=== PATIENT | female | born 1990 | race Hispanic/Latino ===

== ENCOUNTER 2020-05-10 10:54 | Emergency (ER) | payer MEDICAID, OTHER, SELFPAY ==
[2020-05-10 11:45] LABS: BASOPHILS % (AUTO) 0.2 % (0.0-5.0); EOSINOPHILS % (AUTO) 0.2 % (0.0-8.0); HEMATOCRIT 38.1 % (36-48); LYMPHOCYTES % (AUTO) 8.6 % (21.0-51.0); MEAN CORPUSCULAR HEMOGLOBIN 26.9 pg (27.0-33.0); MEAN CORPUSCULAR HGB CONC 33.6 g/dL (32.0-36.0); NEUTROPHILS % (AUTO) 85.7 % (40.0-77.0); PLATELET COUNT (AUTO) 234 K/uL (130-400); RED BLOOD CELL COUNT(AUTO) 4.76 MIL/uL (4.00-5.50); RED CELL DISTRIBUTION WIDTH 13.6 % (11.0-15.5); WHITE BLOOD COUNT (AUTO) 13.3 K/uL (4.8-10.8)
[2020-05-10 11:47] LABS: CREATININE 0.6 mg/dL (0.5-1.5); POTASSIUM 3.6 mmol/L (3.5-5.1)
[2020-05-10 11:52] LABS: ALBUMIN 3.8 g/dL (3.5-5.0); BILIRUBIN,TOTAL 0.5 mg/dL (0.2-1.0); TOTAL PROTEIN, SERUM 7.3 g/dL (6.0-8.3)
[2020-05-10 12:01] LABS: APPEARANCE,URINE TURBID (CLEAR); BILIRUBIN,URINE SMALL (NEGATIVE); COLOR,URINE YELLOW (YELLOW); GLUCOSE, URINE (UA) NEGATIVE (NEGATIVE); KETONES,URINE 40 mg/dL (NEGATIVE); LEUKOCYTE ESTERASE ,URINE SMALL (NEGATIVE); NITRATE,URINE NEGATIVE (NEGATIVE); OCCULT BLOOD,URINE MODERATE (NEGATIVE); PROTEIN,URINE TRACE mg/dL (NEGATIVE); UROBILINOGEN,URINE 0.2 mg/dL (0.2-1.0)
[2020-05-10 12:05] LABS: HCG,QUAL RESULT NEGATIVE (NEGATIVE)
[2020-05-10 12:09] LABS: BACTERIA,URINE Many /HPF (None Seen); RBC,URINE 0-1 /HPF (0-1); SQUAMOUS EPITHELIAL CELL,UR Rare /HPF (0-2); WBC,URINE 0-1 /HPF (0-1)
[2020-05-10] MEDS ORDERED: CEFTRIAXONE SODIUM 1 GM ONE (13:03)
== END 2020-05-10 13:30 | disposition home or self-care (01) ==
LOC: EDH 10:54
DX: N13.6 Pyonephrosis (principal); R11.10 Vomiting, unspecified; Z90.49 Acquired absence of other specified parts of digestive tract; Z72.0 Tobacco use; Z03.818 Encounter for observation for suspected exposure to other biological agents ruled out
CPT/HCPCS: 36415; 80053; 81001; 81025; 85025; 87088; 96374; 99283; J0696; U0003

== ENCOUNTER → 2025-09-11 | Emergency (ER) | payer OTHER ==
[~2025-09-11] VITALS: Ht 160 cm; Wt 97.5 kg
[~2025-09-11] MED LIST: NITR100C4 PO
[2025-09-11 04:55] LABS: IMMATURE GRANULOCYTE ABSOLUTE 0.05 K/uL (0-1); NUCLEATED RED BLOOD CELLS 0.0 % (0.0-0.19); PLATELET COUNT (AUTO) 290 K/uL (130-400); RED BLOOD CELL COUNT(AUTO) 4.78 MIL/uL (4.00-5.50); RED CELL DISTRIBUTION WIDTH 14.1 % (11.0-15.5); WHITE BLOOD COUNT (AUTO) 10.8 K/uL (4.8-10.8)
[2025-09-11 05:10] LABS: APPEARANCE,URINE CLOUDY (CLEAR); GLUCOSE, URINE (UA) NEGATIVE (NEGATIVE); LEUKOCYTE ESTERASE ,URINE 75 Leu/uL (NEGATIVE); NITRATE,URINE NEGATIVE (NEGATIVE); OCCULT BLOOD,URINE SMALL (NEGATIVE)
[2025-09-11 05:12] LABS: HCG,QUALITATIVE URINE NEGATIVE (NEGATIVE)
[2025-09-11 05:14] LABS: ALCOHOL, BLOOD 201.0 mg/dL (0-10); CREATININE 0.9 mg/dL (0.5-1.0); GLOMERULAR FILTR. RATE CALC 85.0 mL/min (>90); GLUCOSE,RANDOM 102.0 mg/dL (70-105); SODIUM SERUM 142.0 mmol/L (136-145); UREA NITROGEN, BLOOD 10.0 mg/dL (7-18)
[2025-09-11 05:15] LABS: ADD UA MICROSCOPIC YES
[2025-09-11 05:23] LABS: AMPHET/METH SCREEN,URINE NEGATIVE (NEGATIVE); BARBITURATE SCREEN, URINE NEGATIVE (NEGATIVE); CANNABINOID SCREEN,URINE NEGATIVE (NEGATIVE); COCAINE SCREEN,URINE NEGATIVE (NEGATIVE)
[2025-09-11 05:36] LABS: SQUAMOUS EPITHELIAL CELL,UR MANY /HPF (0-2); WBC CLUMP FEW /HPF (0-1); YEAST,URINE BUDDING FEW /HPF (None Seen)
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
[2025-09-11 09:10] VITALS: BP 117/60; PULSE 96; RESP 19; TEMP 97.9; O2SAT 100
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
--- NOTE | 2025-09-15 13:41 | NUR ---
I ENTERED THE CHART D/T CALL FROM PT FAMILY FOR A WORK EXCUSE. I FILLED ONE OUT AND IT WAS PROVIDED TO HER BY THE REGISTRTATION [employer] AFTER I HANDED IT OVER TO HER. PT IS SUPPOSED TO F/U W/HER PCP INDICATED ON HER D/C NOTE BY PARKER MOSHER
== END ==
LOC: EDH 04:00
DX: S80.10XA Contusion of unspecified lower leg, initial encounter (principal); R10.10 Upper abdominal pain, unspecified; N39.0 Urinary tract infection, site not specified; F10.129 Alcohol abuse with intoxication, unspecified; Z79.899 Other long term (current) drug therapy; Z87.19 Personal history of other diseases of the digestive system; Z90.49 Acquired absence of other specified parts of digestive tract; Y90.9 Presence of alcohol in blood, level not specified; V89.2XXA Person injured in unspecified motor-vehicle accident, traffic, initial encounter; Y93.89 Activity, other specified; Y92.89 Other specified places as the place of occurrence of the external cause; Y99.8 Other external cause status
CPT/HCPCS: 99285; 74176; 80048; 80305; 85025; 87086 ×2; 87186; 81001; 81025; 36415; 96372 ×2; J0696; J1171